=== PATIENT | male | born 1955 ===

== ENCOUNTER 2023-02-06 20:35 | Inpatient (IN) | payer OTHER ==
[~2023-02-06] VITALS: Ht 177.8 cm; Wt 83.9 kg
[2023-02-06 21:10] LABS: BASOPHILS % (AUTO) 0.3 % (0.0-2.0); DIFFERENTIAL COMMENT 0; HEMATOCRIT 27.1 % (36.7-47.1); HEMOGLOBIN 7.8 g/dL (12.5-16.3); LYMPHOCYTES # (AUTO) 1.8 K/uL (0.8-4.8); LYMPHOCYTES % (AUTO) 39.9 % (20.5-51.5); MEAN CORPUSCULAR HEMOGLOBIN 22.9 uug (23.8-33.4); MEAN CORPUSCULAR HGB CONC 29 g/dL (32.5-36.3); MEAN CORPUSCULAR VOLUME 79.4 fL (73.0-96.2); MONOCYTES # (AUTO) 0.3 K/uL (0.1-1.30); MONOCYTES % (AUTO) 7.2 % (0.0-11.0); NEUTROPHILS # (AUTO) 2.3 K/uL (1.8-8.9); NEUTROPHILS % (AUTO) 52.6 % (38.5-71.5); PLATELET COUNT (AUTO) 335 K/uL (152-348); RED BLOOD CELL COUNT(AUTO) 3.42 MIL/uL (4.06-5.63); RED CELL DISTRIBUTION WIDTH 26.5 % (12.1-16.2); WHITE BLOOD COUNT (AUTO) 4.4 K/uL (3.6-10.2)
[2023-02-06 21:31] LABS: CALCIUM 8.8 mg/dL (8.5-10.1); CARBON DIOXIDE 13 mmol/L (21-32); CHLORIDE 98 mmol/L (98-107); CREATININE 3.4 mg/dL (0.6-1.3); GLUCOSE 100 mg/dL (74-106); POTASSIUM 4.7 mmol/L (3.5-5.1); UREA NITROGEN, BLOOD 58 mg/dL (7-18)
[2023-02-06 21:44] LABS: ALANINE AMINOTRANSFERASE 70 U/L (16-63); ALBUMIN 1.6 g/dL (3.4-5.0); ALKALINE PHOSPHATASE 229 U/L (50-136); ASPARTATE AMINOTRANSFERASE 304 U/L (15-37); BILIRUBIN,DIRECT 5.9 mg/dL (0.0-0.2); BILIRUBIN,TOTAL 6.9 mg/dL (0.2-1.0); NT-PRO BNP 2650 pg/mL (0-125); TOTAL PROTEIN, SERUM 5.8 g/dL (6.4-8.2)
[2023-02-06 21:45] LABS: LACTIC ACID 11.7 mmol/L (0.4-2.0)
[2023-02-06 22:08] LABS: SODIUM SERUM 137 mmol/L (136-145)
[2023-02-06] MEDS ORDERED: VANCOMYCIN 1G/D5W 200 ML PIGGYBACK IV ONE (22:30)
[2023-02-06] MEDS ORDERED: PIPERACILLIN SODIUM/TAZOBACTAM 3.375 G in IV DEXTROSE 5% 50 ML IV ONE (22:30)
[2023-02-06] MEDS ORDERED: AZITHROMYCIN IV 500 MG in IV DEXTROSE 5% 250 ML IV ONE (22:30)
[2023-02-06] MEDS ORDERED: PIPERACILLIN/TAZOBACTAM/D5W 50 ML IV ONE (22:34)
[2023-02-06] MEDS ORDERED: AZITHROMYCIN 500MG/ D5W 250ML IVPB **ER PYXIS ONLY IV ONE (22:41)
[2023-02-06] MEDS ORDERED: ONDANSETRON 4 MG/2 ML VIAL IV ONE (23:15)
[2023-02-06] MEDS ORDERED: MULT-647 PO (23:20)
[2023-02-06] MEDS ORDERED: ONDA-104 PO (23:20)
[2023-02-06] MEDS ORDERED: MORP15TA PO (23:20)
[2023-02-06] MEDS ORDERED: morphine er PO (23:20)
[2023-02-06] MEDS ORDERED: [UNRECOGNIZED DRUG - OTHER] PO (23:20)
[2023-02-06] MEDS ORDERED: ONDANSETRON 4 MG/2 ML VIAL ONE (23:27)
[2023-02-06] MEDS ORDERED: IV NS 1000 ML 2,000 ML IV ONE (23:30)
[2023-02-06] MEDS ORDERED: NOREPINEPHRINE BITARTRATE 8 MG in IV NORMAL SALINE 242 ML IV PRN (23:30)
[2023-02-06] MEDS ORDERED: IV NORMAL SALINE 500 ML IV ONE (23:45)
[2023-02-07] VITALS (27 sets, daily range): BP systolic 89–111; BP diastolic 45–59; TEMP 97.8–98.7; O2SAT 93–97
[2023-02-07] MEDS ORDERED: VANCOMYCIN IV 200 ML ONE (00:16)
[2023-02-07] MEDS ORDERED: MORPHINE SULFATE IR 30 MG TABLET PO PRN (01:30)
[2023-02-07] MEDS ORDERED: MAGNESIUM HYDROXIDE 30 ML LIQUID UDC PO PRN (05:00)
[2023-02-07] MEDS ORDERED: MORPHINE SULFATE 2 MG/1 ML DISP.SYRIN IV PRN (05:00)
[2023-02-07] MEDS ORDERED: ONDANSETRON 4 MG/2 ML VIAL IV PRN (05:00)
[2023-02-07] MEDS ORDERED: ZOLPIDEM 5 MG TABLET PO PRN (05:00)
[2023-02-07] MEDS ORDERED: ACETAMINOPHEN 325 MG TABLET PO PRN (05:00)
[2023-02-07] MEDS ORDERED: REMEDY ESSENTIAL ZINC PASTE 113 GM TP PRN (05:00)
[2023-02-07 05:21] LABS: ABG BASE EXCESS -7.7 mmol/L; ABG PCO2 26.2 mmHg (35.0-45.0); ABG PH 7.405 (7.350-7.450); ABG PO2 68.9 mmHg (75.0-100.0); ABG SITE RIGHT RADIAL; ABG TOTAL HEMOGLOBIN 7.6 G/dL (13.5-18.0); MetHb 0.3 % (0.0-1.5); O2Hb 91.2 % (94.0-97.0); VENT MODE ROOM AIR
[2023-02-07] MEDS ORDERED: PIPERACILLIN SODIUM/TAZOBACTAM 3.375 G in IV DEXTROSE 5% 50 ML IV SCH (06:00)
[2023-02-07] MEDS: IV LACTATED RINGERS SOLUTION 1,000 ML IV SCH ×2 (06:00→17:25)
[2023-02-07 06:11] LABS: BASOPHILS % (AUTO) 0.2 % (0.0-2.0); HEMATOCRIT 22.6 % (36.7-47.1); LYMPHOCYTES # (AUTO) 1.9 K/uL (0.8-4.8); LYMPHOCYTES % (AUTO) 37.2 % (20.5-51.5); MEAN CORPUSCULAR HEMOGLOBIN 23.2 uug (23.8-33.4); MEAN CORPUSCULAR HGB CONC 31 g/dL (32.5-36.3); MEAN CORPUSCULAR VOLUME 75.6 fL (73.0-96.2); MONOCYTES # (AUTO) 0.4 K/uL (0.1-1.30); MONOCYTES % (AUTO) 8.2 % (0.0-11.0); NEUTROPHILS # (AUTO) 2.8 K/uL (1.8-8.9); NEUTROPHILS % (AUTO) 54.4 % (38.5-71.5); PLATELET COUNT (AUTO) 288 K/uL (152-348); RED BLOOD CELL COUNT(AUTO) 2.99 MIL/uL (4.06-5.63); RED CELL DISTRIBUTION WIDTH 26.1 % (12.1-16.2)
[2023-02-07 06:14] LABS: DIFFERENTIAL COMMENT 1
[2023-02-07 06:15] LABS: WHITE BLOOD COUNT (AUTO) 5.1 K/uL (3.6-10.2)
[2023-02-07] MEDS ORDERED: PANTOPRAZOLE SODIUM 40 MG TABLET.DR PO SCH (07:00)
[2023-02-07 07:01] LABS: CARBON DIOXIDE 17 mmol/L (21-32); CHLORIDE 101 mmol/L (98-107); CREATININE 3.4 mg/dL (0.6-1.3); POTASSIUM 4.6 mmol/L (3.5-5.1); SODIUM SERUM 141 mmol/L (136-145)
[2023-02-07 07:21] LABS: ALANINE AMINOTRANSFERASE 74 U/L (16-63); ALKALINE PHOSPHATASE 201 U/L (50-136); ASPARTATE AMINOTRANSFERASE 311 U/L (15-37); BILIRUBIN,TOTAL 6.5 mg/dL (0.2-1.0); CHOLESTEROL 120 mg/dL (<200); GLUCOSE 117 mg/dL (74-106); TOTAL PROTEIN, SERUM 5.5 g/dL (6.4-8.2); TRIGLYCERIDES 229 MG/DL (30-150); UREA NITROGEN, BLOOD 63 mg/dL (7-18)
[2023-02-07 07:31] LABS: ALBUMIN 1.5 g/dL (3.4-5.0); HDL CHOLESTEROL < 10 mg/dL (40-60); LIPASE 28 U/L (73-393)
[2023-02-07 07:53] LABS: THYROID STIMULATING HORMONE 3.228 mIU/mL (0.358-3.740)
[2023-02-07] MEDS: PIPERACILLIN SODIUM/TAZOBACTAM 3.375 G in IV DEXTROSE 5% 100 ML IV SCH ×3 (08:26→21:58)
[2023-02-07 09:03] LABS: *OCCULT BLOOD STOOL POSITIVE (NEGATIVE)
[2023-02-07] MEDS: FLUCONAZOLE 200 MG/NS 100ML IV 100 MG in PREMIXED 1 EACH IV SCH (09:26)
[2023-02-07] MEDS: PANTOPRAZOLE SODIUM 40 MG VIAL IV SCH ×2 (09:27→22:08)
[2023-02-07] MEDS ORDERED: GOLYTELY 4000 ML BOTTLE PO ONE ×2 (10:00)
[2023-02-07] MEDS ORDERED: MORPHINE SULFATE 4 MG/1 ML DISP.SYRIN IV PRN (12:15)
[2023-02-07] MEDS: MORPHINE SULFATE IR 30 MG TABLET PO SCH (17:00)
[2023-02-07 17:05] LABS: HEMATOCRIT 22.8 % (36.7-47.1)
[2023-02-07] MEDS ORDERED: FUROSEMIDE 20 MG/2 ML VIAL IV ONE (21:00)
[2023-02-07 22:17] LABS: HEMATOCRIT 24.4 % (36.7-47.1); HEMOGLOBIN 7.6 g/dL (12.5-16.3)
[2023-02-07] MEDS ORDERED: FUROSEMIDE 20 MG/2 ML VIAL ONE (23:35)
[2023-02-08] VITALS (62 sets, daily range): BP systolic 79–134; BP diastolic 46–84; TEMP 97.5–98.7; O2SAT 92–97
[2023-02-08] MEDS: IV LACTATED RINGERS SOLUTION 1,000 ML IV SCH ×3 (03:33→20:39)
[2023-02-08 05:06] LABS: BASOPHILS % (AUTO) 0.2 % (0.0-2.0); EOSINOPHILS % (AUTO) 0.6 % (0.0-7.0); HEMATOCRIT 24.4 % (36.7-47.1); HEMOGLOBIN 7.8 g/dL (12.5-16.3); LYMPHOCYTES # (AUTO) 1.1 K/uL (0.8-4.8); LYMPHOCYTES % (AUTO) 22.5 % (20.5-51.5); MEAN CORPUSCULAR HEMOGLOBIN 24.4 uug (23.8-33.4); MEAN CORPUSCULAR HGB CONC 32 g/dL (32.5-36.3); MEAN CORPUSCULAR VOLUME 76.2 fL (73.0-96.2); MONOCYTES # (AUTO) 0.5 K/uL (0.1-1.30); MONOCYTES % (AUTO) 10.3 % (0.0-11.0); NEUTROPHILS # (AUTO) 3.3 K/uL (1.8-8.9); NEUTROPHILS % (AUTO) 66.4 % (38.5-71.5); PLATELET COUNT (AUTO) 200 K/uL (152-348); RED CELL DISTRIBUTION WIDTH 23.6 % (12.1-16.2)
[2023-02-08 05:16] LABS: DIFFERENTIAL COMMENT 1
[2023-02-08 05:25] LABS: CALCIUM 7.8 mg/dL (8.5-10.1); CREATININE 3.3 mg/dL (0.6-1.3); MAGNESIUM 1.8 mg/dL (1.8-2.4); PHOSPHOROUS 2.7 mg/dL (2.5-4.9); POTASSIUM 3.8 mmol/L (3.5-5.1); VANCOMYCIN,RANDOM 6.5 ug/mL (20.0-30.0)
[2023-02-08] MEDS: PIPERACILLIN SODIUM/TAZOBACTAM 3.375 G in IV DEXTROSE 5% 100 ML IV SCH ×3 (05:30→21:03)
[2023-02-08 07:47] LABS: *CLARITY,URINE CLEAR (CLEAR); *COLOR,URINE YELLOW (YELLOW); *KETONES,URINE NEGATIVE (NEGATIVE); *PROTEIN,URINE 1+ (NEGATIVE); *UROBILINOGEN,URINE 0.2 E.U./dl (NORMAL); LEUKOCYTE ESTERASE ,URINE NEGATIVE (NEGATIVE); NITRITE, URINE NEGATIVE (NEGATIVE); UGLUCOSE NEGATIVE (NEGATIVE)
[2023-02-08] MEDS: NOREPINEPHRINE BITARTRATE 8 MG in IV NORMAL SALINE 242 ML IV PRN (07:56)
[2023-02-08] MEDS ORDERED: VANCOMYCIN IV 1,000 MG in IV DEXTROSE 5% 250 ML IV ONE (08:00)
[2023-02-08 08:05] LABS: *BILIRUBIN,URIN 1+ (NEGATIVE); *BLOOD, URINE TRACE (NEGATIVE)
[2023-02-08 08:17] LABS: RBC,URINE 0-3 /HPF (0-3)
[2023-02-08 08:18] LABS: BACTERIA,URINE MODERATE /HPF (NONE SEEN); WBC,URINE 0-3 /HPF (0-3)
[2023-02-08] MEDS: PANTOPRAZOLE SODIUM 40 MG VIAL IV SCH ×2 (08:20→20:40)
[2023-02-08] MEDS: MORPHINE SULFATE IR 30 MG TABLET PO SCH (08:23)
[2023-02-08] MEDS: FLUCONAZOLE 200 MG/NS 100ML IV 100 MG in PREMIXED 1 EACH IV SCH (08:46)
[2023-02-08 09:51] LABS: LACTIC ACID 3.4 mmol/L (0.4-2.0)
[2023-02-08] MEDS ORDERED: IV NS 1000 ML 1,000 ML IV ONE ×2 (10:00→13:00)
[2023-02-08 15:29] LABS: HEMATOCRIT 24.9 % (36.7-47.1); HEMOGLOBIN 7.8 g/dL (12.5-16.3)
[2023-02-08] MEDS: MORPHINE SULFATE SR 30 MG TABLET.SA PO SCH (20:41)
[2023-02-08 22:08] LABS: HEMATOCRIT 25.7 % (36.7-47.1)
[2023-02-09] VITALS (33 sets, daily range): BP systolic 72–115; BP diastolic 41–66; TEMP 97.7–98.8; O2SAT 92–97
[2023-02-09] MEDS: NOREPINEPHRINE BITARTRATE 8 MG in IV NORMAL SALINE 242 ML IV PRN (02:26)
[2023-02-09 05:02] LABS: HEMATOCRIT 25.9 % (36.7-47.1); HEMOGLOBIN 8.2 g/dL (12.5-16.3)
[2023-02-09] MEDS: PIPERACILLIN SODIUM/TAZOBACTAM 3.375 G in IV DEXTROSE 5% 100 ML IV SCH (05:04)
[2023-02-09 05:14] LABS: CREATININE 2.8 mg/dL (0.6-1.3); POTASSIUM 3.2 mmol/L (3.5-5.1); VANCOMYCIN,RANDOM 12.6 ug/mL (20.0-30.0)
[2023-02-09] MEDS ORDERED: POTASSIUM CHLORIDE 20 MEQ TAB.PRT.SR PO ONE (08:00)
[2023-02-09] MEDS: MORPHINE SULFATE SR 30 MG TABLET.SA PO SCH (08:41)
[2023-02-09] MEDS: PANTOPRAZOLE SODIUM 40 MG VIAL IV SCH (08:42)
[2023-02-09] MEDS: IV LACTATED RINGERS SOLUTION 1,000 ML IV SCH (08:43)
[2023-02-09] MEDS ORDERED: VANCOMYCIN IV 1,000 MG in IV DEXTROSE 5% 250 ML IV ONE (09:00)
[2023-02-09] MEDS: POTASSIUM CHLORIDE 50 ML IV SCH ×4 (09:05→12:22)
[2023-02-09] MEDS: FLUCONAZOLE 200 MG/NS 100ML IV 100 MG in PREMIXED 1 EACH IV SCH (09:33)
[2023-02-09] MEDS ORDERED: MUPIROCIN 2% OINT 22 GM TUBE NS SCH (11:00)
[2023-02-09] MEDS: MORPHINE SULFATE PF IV DRIP 100 MG in IV DEXTROSE 5% 96 ML IV PRN (12:24)
[2023-02-09] MEDS ORDERED: LORAZEPAM 2 MG/1 ML VIAL IV PRN (16:45)
[2023-02-10] MEDS: MORPHINE SULFATE PF IV DRIP 100 MG in IV DEXTROSE 5% 96 ML IV PRN ×2 (09:50→15:25)
[2023-02-10 12:00] VITALS: BP 68/40; O2SAT 89
[2023-02-10 16:00] VITALS: BP 65/39; O2SAT 88
[2023-02-10 16:35] VITALS: O2SAT 91
== END 2023-02-10 23:00 | DRG 871 ==
LOC: ER 20:37 → CCU 02-07 01:08 → MEDSURG3 02-09 19:46
PROVIDERS: ADMIT Internal Medicine; ATTEND Internal Medicine
PROC: 30233K1 Transfusion of Nonautologous Frozen Plasma into Peripheral Vein, Percutaneous Approach (ICD-10-PCS; principal; 2023-02-07)
DX: A41.9 Sepsis, unspecified organism (principal); E43 Unspecified severe protein-calorie malnutrition; R65.21 Severe sepsis with septic shock; G92.8 Other toxic encephalopathy; N17.0 Acute kidney failure with tubular necrosis; J69.0 Pneumonitis due to inhalation of food and vomit; C18.9 Malignant neoplasm of colon, unspecified; K92.2 Gastrointestinal hemorrhage, unspecified; D62 Acute posthemorrhagic anemia; C78.7 Secondary malignant neoplasm of liver and intrahepatic bile duct; Z51.5 Encounter for palliative care; E86.1 Hypovolemia; N18.9 Chronic kidney disease, unspecified; Z86.711 Personal history of pulmonary embolism; Z93.3 Colostomy status; Z95.828 Presence of other vascular implants and grafts; R13.10 Dysphagia, unspecified; Z20.822 Contact with and (suspected) exposure to COVID-19; E88.09 Other disorders of plasma-protein metabolism, not elsewhere classified; E87.6 Hypokalemia; Z68.26 Body mass index [BMI] 26.0-26.9, adult; R93.1 Abnormal findings on diagnostic imaging of heart and coronary circulation
CPT/HCPCS: 36415; 36600; 71045; 76705; 83605; 83690; 83735; 84100; 84443; 84484; 85018; 85025; 86850; 86900; 86901; 86920; 87040; 93005; 93307; C9113; G0378; J0456; J1450; J1940; J2060; J2274; J2405; J2543; J3370; J3480; J3490; J7040; J7050; J7120; P9016